=== PATIENT | female | born 1990 | race Caucasian/White ===

== ENCOUNTER → 2017-12-26 | Emergency (ER) | payer OTHER ==
[~2017-12-26] VITALS: Ht 160 cm; Wt 90.7 kg
[~2017-12-26] MED LIST: FLONASE ALLERG9.9 ML NASAL; KETO10TA2 PO; MUCINEX DM ER1 EAC1 PO; OSEL75CA PO
== END | disposition home or self-care (01) ==
LOC: ER 01:25
DX: J11.1 Influenza due to unidentified influenza virus with other respiratory manifestations (principal); J32.8 Other chronic sinusitis